=== PATIENT | female | born 1950 | race Caucasian/White ===

== ENCOUNTER 2022-12-01 10:22 | Inpatient (IN) | payer OTHER ==
[~2022-12-01] VITALS: Ht 167.6 cm; Wt 81.6 kg
[~2022-12-01 10:22] MED LIST: NABUMETONE500 MG PO; PERCOCET 5/3251 TAB PO
[2022-12-01] MEDS ORDERED: ATORVASTATIN CA40 MG PO (11:25)
[2022-12-01] MEDS ORDERED: LEVOTHYROXINE50 MCG PO (11:25)
[2022-12-01] MEDS ORDERED: GALANTAMINE HBR24 MG PO (11:26)
[2022-12-01] MEDS ORDERED: MEMANTINE HCL E28 MG PO (11:26)
[2022-12-01] MEDS ORDERED: LOSARTAN POTASS25 MG PO (11:26)
[2022-12-01 12:16] LABS: HEMATOCRIT 37.9 % (36.0-45.00); HEMOGLOBIN 12.9 g/dL (12.0-15.00); MEAN CELL VOLUME 93.3 fL (80.00-100.00); MEAN CORPUSCULAR HEMOGLOBIN 31.7 pg (27.00-32.0); PLATELET COUNT 231 K/uL (150-450); RED BLOOD COUNT 4.07 M/uL (4.00-6.00); RED CELL DISTRIBUTION WIDTH 13.5 % (11.5-14.5)
[2022-12-01 12:45] LABS: CALCIUM 9.1 mg/dL (8.5-10.1)
[2022-12-01 13:03] LABS: CREATININE SERUM 5.11 mg/dL (0.55-1.02); GFR 8.25
[2022-12-01 13:04] LABS: POTASSIUM 2.51 mEq/L (3.5-5.1)
[2022-12-01 13:21] LABS: URINE APPEARANCE Turbid; URINE BILIRRUBIN Negative (NEGATIVE); URINE BLOOD Moderate; URINE COLOR Dark Yellow; URINE GLUCOSE Negative (NEGATIVE); URINE LEUKOCYTE Moderate; URINE NITRATE Negative; URINE UROBILINOGEN 0.2 E.U./dl
[2022-12-01 13:24] LABS: URINE BACTERIA 1952.9 uL (0.0-1933); URINE EPITHELIAL CELLS 132.9 uL (0.0-38.8); URINE RBC 41.8 uL (0.0-20.8); URINE WBC 848.2 uL (0.0-23.2)
[2022-12-01 13:43] LABS: URINE PROTEIN 100 (NEGATIVE)
[2022-12-01 22:35] LABS: ALBUMIN 3.1 gm/dL (3.4-5.0); BILIRUBIN TOTAL 0.54 mg/dL (0.3-1.2); CALCIUM 8.4 mg/dL (8.5-10.1); CREATININE SERUM 3.42 mg/dL (0.55-1.02); GFR 13.11; GLOBULINA 3.7 G/DL (2.4-3.5); TOTAL PROTEIN 6.8 gm/dL (6.4-8.2)
[2022-12-01 22:36] LABS: C-REACTIVE PROTEIN 5.2 MG/DL (0.00-0.29); POTASSIUM 2.49 mEq/L (3.5-5.1)
[2022-12-02 04:34] LABS: ALBUMIN 2.7 gm/dL (3.4-5.0); BILIRUBIN TOTAL 0.34 mg/dL (0.3-1.2); CALCIUM 8.3 mg/dL (8.5-10.1); CREATININE SERUM 2.79 mg/dL (0.55-1.02); GFR 16.59; GLOBULINA 3.9 G/DL (2.4-3.5); POTASSIUM 3.69 mEq/L (3.5-5.1); TOTAL PROTEIN 6.6 gm/dL (6.4-8.2)
[2022-12-03 07:47] LABS: ALBUMIN 2.3 gm/dL (3.4-5.0); BILIRUBIN TOTAL 0.44 mg/dL (0.3-1.2); CALCIUM 8.1 mg/dL (8.5-10.1); CREATININE SERUM 1.13 mg/dL (0.55-1.02); GFR 47.07; MAGNESIUM 1.9 mg/dL (1.8-2.4); POTASSIUM 3.94 mEq/L (3.5-5.1); TOTAL PROTEIN 5.3 gm/dL (6.4-8.2)
[2022-12-03 07:54] LABS: HEMATOCRIT 29.9 % (36.0-45.00); HEMOGLOBIN 10.5 g/dL (12.0-15.00); MEAN CELL VOLUME 91.8 fL (80.00-100.00); MEAN CORPUSCULAR HEMOGLOBIN 32.4 pg (27.00-32.0); MEAN CORPUSCULAR HGB CONC 35.3 g/dl (32.0-36.0); PLATELET COUNT 197 K/uL (150-450); RED BLOOD COUNT 3.26 M/uL (4.00-6.00); RED CELL DISTRIBUTION WIDTH 13.6 % (11.5-14.5)
[2022-12-03 09:39] LABS: PHOSPHOROUS 1.9 mg/dL (2.5-4.9)
[2022-12-05 07:58] LABS: HEMATOCRIT 31.1 % (36.0-45.00); HEMOGLOBIN 10.7 g/dL (12.0-15.00); MEAN CELL VOLUME 93.1 fL (80.00-100.00); MEAN CORPUSCULAR HEMOGLOBIN 32.1 pg (27.00-32.0); MEAN CORPUSCULAR HGB CONC 34.5 g/dl (32.0-36.0); PLATELET COUNT 238 K/uL (150-450); RED BLOOD COUNT 3.34 M/uL (4.00-6.00); RED CELL DISTRIBUTION WIDTH 13.3 % (11.5-14.5)
[2022-12-05 08:39] LABS: ALBUMIN 2.6 gm/dL (3.4-5.0); BILIRUBIN TOTAL 0.53 mg/dL (0.3-1.2); CALCIUM 7.9 mg/dL (8.5-10.1); CREATININE SERUM 0.72 mg/dL (0.55-1.02); GFR 79.18; GLOBULINA 3.2 G/DL (2.4-3.5); MAGNESIUM 1.5 mg/dL (1.8-2.4); PHOSPHOROUS 2.1 mg/dL (2.5-4.9); TOTAL PROTEIN 5.8 gm/dL (6.4-8.2)
[2022-12-05 08:59] LABS: POTASSIUM 2.73 mEq/L (3.5-5.1)
[2022-12-05 15:42] LABS: URINE PROT QUANT 24HR 16.2 MG/DL
[2022-12-05 15:59] LABS: URINE PROT QUANT 24 HR 461.7 MG/24HR (42-225)
[2022-12-05 16:11] LABS: CREATININE SERUM 0.77 mg/dL (0.6-1.0)
[2022-12-05 16:12] LABS: CREATINE CLEARANCE 78.3 ML/MIN (97-137)
[2022-12-06 06:28] LABS: HEMATOCRIT 28.7 % (36.0-45.00); HEMOGLOBIN 10.2 g/dL (12.0-15.00); MEAN CELL VOLUME 91.7 fL (80.00-100.00); MEAN CORPUSCULAR HEMOGLOBIN 32.6 pg (27.00-32.0); MEAN CORPUSCULAR HGB CONC 35.5 g/dl (32.0-36.0); PLATELET COUNT 256 K/uL (150-450); RED BLOOD COUNT 3.13 M/uL (4.00-6.00); RED CELL DISTRIBUTION WIDTH 13.6 % (11.5-14.5)
[2022-12-06 06:56] LABS: ALBUMIN 2.2 gm/dL (3.4-5.0); BILIRUBIN TOTAL 0.43 mg/dL (0.3-1.2); CREATININE SERUM 0.62 mg/dL (0.55-1.02); GFR 94.09; GLOBULINA 2.9 G/DL (2.4-3.5); PHOSPHOROUS 2.1 mg/dL (2.5-4.9); POTASSIUM 3.52 mEq/L (3.5-5.1); TOTAL PROTEIN 5.1 gm/dL (6.4-8.2)
[2022-12-07 05:13] LABS: HEMATOCRIT 32.4 % (36.0-45.00); MEAN CELL VOLUME 94.2 fL (80.00-100.00); MEAN CORPUSCULAR HEMOGLOBIN 31.9 pg (27.00-32.0); MEAN CORPUSCULAR HGB CONC 33.9 g/dl (32.0-36.0); PLATELET COUNT 288 K/uL (150-450); RED BLOOD COUNT 3.44 M/uL (4.00-6.00); RED CELL DISTRIBUTION WIDTH 13.8 % (11.5-14.5)
[2022-12-07 05:26] LABS: ALBUMIN 2.6 gm/dL (3.4-5.0); BILIRUBIN TOTAL 0.53 mg/dL (0.3-1.2); CALCIUM 7.6 mg/dL (8.5-10.1); CREATININE SERUM 0.59 mg/dL (0.55-1.02); GFR 99.64; GLOBULINA 3.2 G/DL (2.4-3.5); POTASSIUM 4.07 mEq/L (3.5-5.1); TOTAL PROTEIN 5.8 gm/dL (6.4-8.2)
[2022-12-07 07:56] LABS: MAGNESIUM 1.4 mg/dL (1.8-2.4)
[2022-12-07 07:57] LABS: PHOSPHOROUS 1.9 mg/dL (2.5-4.9)
[2022-12-08 06:52] LABS: CALCIUM 8.1 mg/dL (8.5-10.1); CREATININE SERUM 0.62 mg/dL (0.55-1.02); GFR 94.09; MAGNESIUM 2.2 mg/dL (1.8-2.4); PHOSPHOROUS 3.5 mg/dL (2.5-4.9); POTASSIUM 5.03 mEq/L (3.5-5.1)
[2022-12-08] MEDS ORDERED: PRE PROTEIN1 EACH PO (12:24)
[2022-12-08] MEDS ORDERED: INTEGRA PLUS C1 EACH PO (12:24)
[2022-12-08] MEDS ORDERED: LEVOFLOXACIN750 MG PO (12:24)
[2022-12-08] MEDS ORDERED: LOSARTAN POTASS25 MG PO (12:24)
[2022-12-08] MEDS ORDERED: INTESTINEX680 M1 PO (12:25)
[2022-12-08] MEDS ORDERED: CALCIUM 500-VI1 EAC6 PO (12:25)
[2022-12-08] MEDS ORDERED: LEVOTHYROXINE25 MCG PO (12:25)
[2022-12-08] MEDS ORDERED: ARICEPT10 MG PO (12:26)
[2022-12-08] MEDS ORDERED: RAZADYNE ER16 MG PO (12:27)
[2022-12-08] MEDS ORDERED: NAMENDA10 MG PO (12:28)
== END 2022-12-08 14:31 | disposition home or self-care (01) | DRG 372 ==
LOC: ER 10:22 → ICU-2 16:45 → MEDJ 12-02 13:59
PROVIDERS: Emergency Medicine; Internal Medicine; ADMIT Internal Medicine; ATTEND Internal Medicine
PROC: BW21ZZZ Computerized Tomography (CT Scan) of Abdomen and Pelvis (ICD-10-PCS; 2022-12-01)
PROC: 4A12X4Z Monitoring of Cardiac Electrical Activity, External Approach (ICD-10-PCS; 2022-12-02)
PROC: 02HV33Z Insertion of Infusion Device into Superior Vena Cava, Percutaneous Approach (ICD-10-PCS; 2022-12-02)
PROC: 8E0ZXY6 Isolation (ICD-10-PCS; principal; 2022-12-04)
DX: A02.0 Salmonella enteritis (principal); E87.1 Hypo-osmolality and hyponatremia; N17.9 Acute kidney failure, unspecified; E87.6 Hypokalemia; E86.0 Dehydration; I10 Essential (primary) hypertension; G30.8 Other Alzheimer's disease; E03.9 Hypothyroidism, unspecified; F02.80 Dementia in other diseases classified elsewhere, unspecified severity, without behavioral disturbance, psychotic disturbance, mood disturbance, and anxiety